=== PATIENT | female | born 1955 | race American Indian/Alaskan Native ===

== ENCOUNTER 2022-02-26 10:30 | Outpatient (CLI) | payer MEDICARE, BC ==
--- NOTE | 2022-02-26 12:36 | Mammography Report ---
DEXA BONE DENSITY SCAN INDICATION / CLINICAL INFORMATION: SCREENING FOR OSTEOPOROSIS [id number]. 66 years Female COMPARISON: 07/17/2010 LUMBAR SPINE, L1-L4: - Bone mineral density (BMD) = 1.212 g/cm2. - T-score = 0.6 - Change (%) since most recent prior (if available): Increased 2.9 LEFT HIP, NECK : - Bone mineral density (BMD) = 0.823 g/cm2. - T-score = -0.9 - Change (%) since most recent prior (if available): Decreased 6.6 IMPRESSION: 1. WHO Classification: Normal bone density. Fracture Risk: Not Increased. 2. 10-Year Fracture Risk (FRAX) = Major Osteoporotic Not reported.% / Hip: Not reported.% FRAX generally not reported for patients with normal or osteoporotic BMD, in jjm-[id number]-cmniezt tresa ents younger than age 50, or in patients undergoing pharmacotherapy BMD Reporting Guidelines (ISCD, 2015) BMD Reporting in Postmenopausal Women and in Men Age 50 and Older - T-scores are preferred. - The WHO densitometric classification is applicable. BMD Reporting in Females Prior to Menopause and in Males Younger Than Age 50 - Z-scores, not T-scores, are preferred. This is particularly important in children. - A Z-score of -2.0 or lower is defined as below the expected range for age, and a Z-score above -2.0 is within the expected range for age. - Osteoporosis cannot be diagnosed in men under age 50 on the basis of BMD alone. - The WHO diagnostic criteria may be applied to women in the menopausal transition. http://www.iscd.org/official-positions/4879-pmlz-xvuvlbaw-positions-adult/ Signer Name: Tyler Acuna MD Signed: 02/26/2022 12:25 PM Workstation Name: [id number]
--- NOTE | 2022-02-27 16:03 | Mammography Report ---
DIGITAL SCREENING MAMMOGRAM WITH CAD, 02/26/2022 CLINICAL INFORMATION / INDICATION: Routine screening mammography. TECHNIQUE: Digital bilateral 2D mammography was obtained in the craniocaudal and mediolateral obliqu e projections. This examination was interpreted with the benefit of Computer-Aided Detection analysis . COMPARISON: 05/16/2020, 09/07/2018 FINDINGS: Breast Density: The breasts are heterogeneously dense, which may obscure small masses. Right breast: No dominant mass, suspicious calcifications, or architectural distortion in the right b reast. Left breast: There is a rounded 1.1 cm asymmetry in the central aspect of the left breast posterior d epth seen on the CC view only. IMPRESSION: 1. New left breast asymmetry which will require additional evaluation with left spot compression view s and possible ultrasound. Follow up recommendation: Special View: Spot Compression BI-RADS Category 0: INCOMPLETE. Needs additional imaging evaluation and/or prior mammograms for terri rison. A "normal" or negative report should not discourage follow up or biopsy of a clinically significant f inding. A written summary of these findings will be mailed to the patient. The patient will be entered into a mammography reporting system which will generate a reminder letter for the patient's next appointmen t at the appropriate interval. The [employer] recommends yearly mammograms starting at age 40 and continuing as l pk as a woman is in good health. Breast MRI is recommended for women with an approximate 20-25% or greater lifetime risk of breast cancer, including women with a strong family history of breast or ova vincent cancer or who have been treated for Hodgkin's disease. Signer Name: Monse Chamberlain MD Signed: 02/27/2022 3:59 PM Workstation Name: [email or web address]
== END 2022-02-26 10:31 | disposition home or self-care (01) ==
LOC: SPVWC 10:30
PROVIDERS: ATTEND Internal Medicine
DX: Z12.31 Encounter for screening mammogram for malignant neoplasm of breast (principal); Z78.0 Asymptomatic menopausal state
CPT/HCPCS: 77067; 77080

== ENCOUNTER 2022-04-11 14:06 | Outpatient (CLI) | payer MEDICARE ==
--- NOTE | 2022-04-11 16:22 | Ultrasound Report ---
LEFT DIGITAL DIAGNOSTIC MAMMOGRAM WITH TOMOSYNTHESIS, 04/11/2022 LEFT LIMITED BREAST ULTRASOUND CLINICAL INFORMATION / INDICATION: Follow-up of new indeterminate left breast asymmetry seen on recen t screening mammogram. R92.8 ABNORMAL MAMMOGRAM TECHNIQUE: Digital left mammographic imaging was performed. Spot compression views were obtained. Myrick ited ultrasound was performed. COMPARISON: Screening mammograms from 02/26/2022 and 05/16/2020. FINDINGS: Breast Density: The breast is heterogeneously dense, which may obscure small masses. MAMMOGRAPHIC FINDINGS: A persistent ovoid asymmetry is seen centrally along the middle depth of the l eft breast on CC imaging only measuring 1.6 x 1.4 cm. No other significant abnormality is identified. ULTRASOUND FINDINGS: Targeted ultrasound evaluation was performed of the area of interest. No mass or other significant abnormality is seen to correlate with the asymmetry. IMPRESSION: Persistent left breast asymmetry as above without an ultrasound should be further evaluat ed with tomosynthesis guided biopsy. Alternatively, breast MRI may be helpful for further characteriz ation. Follow up recommendation: Biopsy BI-RADS Category 4: SUSPICIOUS FOR MALIGNANCY. A "normal" or negative report should not discourage follow up or biopsy of a clinically significant f inding. A written summary of these findings will be mailed to the patient. The patient will be entered into a mammography reporting system which will generate a reminder letter for the patient's next appointmen t at the appropriate interval. According to the [employer], yearly mammograms are recommended starting at age 40 and continuing as long as a woman is in good health. Breast MRI is recommended for women with an fish roximately 20-25% or greater lifetime risk of breast cancer, including women with a strong family his tory of breast or ovarian cancer and women who have been treated for Hodgkin's disease. Signer Name: Jorge Love MD Signed: 04/11/2022 4:18 PM Workstation Name: [facility]
== END 2022-04-11 14:07 | disposition home or self-care (01) ==
LOC: US 14:06
PROVIDERS: ATTEND Internal Medicine
DX: R92.8 Other abnormal and inconclusive findings on diagnostic imaging of breast (principal)